=== PATIENT | male | born 1965 | race Two or more races ===

== ENCOUNTER 2023-05-03 06:24 | Inpatient (IN) | payer BC ==
[~2023-05-03] VITALS: Ht 182.9 cm; Wt 79.4 kg
[2023-05-03] MEDS ORDERED: SINGULAIR10 MG PO (07:21)
[2023-05-03] MEDS ORDERED: NASAL MIST126 ML (07:21)
[2023-05-03] MEDS ORDERED: ALLERGY RELIE15.8 ML NASAL (07:22)
[2023-05-03] MEDS ORDERED: PROAIR RESPICL90 MCG (07:22)
--- NOTE | 2023-05-03 07:23 | NUR ---
PACIENTE MASCULINO ALERTA Y ORIENTADO X3 REFIERE DIFICULTAD RESPIRATORIA Y PRESION EN EL PECHO. SE LE YAIMA S/V SPO2 94% BP 155/100. SE LE REALIZA EKG QUE SE PRESENTA A DR. DAVEY Y SE COLOCA EN PASILLO.
[2023-05-03] MEDS ORDERED: METHYLPREDNISOLONE SOD SUCC 125 MG VIAL IV STA (07:40)
[2023-05-03] MEDS ORDERED: MAGNESIUM SULFATE IN WATER 4 GM/100 ML PIGGYBACK IV STA (07:41)
[2023-05-03] MEDS ORDERED: ALBUTEROL SULFATE 3 ML/2.5 MG AMPUL.NEB IH SCH ×3 (07:45→13:00)
[2023-05-03] MEDS ORDERED: IPRATROPIUM BROMIDE 0.5 MG/2.5 ML AMPUL.NEB IH SCH (07:45)
--- NOTE | 2023-05-03 07:59 | NUR ---
SE ORIENTA PTE SOBRE TX A SEGUIR, EL CUAL REFIERE ENTENDER. SE COLECTAN MUESTRAS Y SE CANALIZA PTE UTILIZANDO MEDIDAS ASEPTICAS. SE ADM. MEDICAMENTOS QUENTIN ORDEN MEDICA. PEND X-RAY.
[2023-05-03 08:10] LABS: HEMATOCRIT 38.9 % (39.0-48.0); HEMOGLOBIN 13.9 g/dL (13-16.00); MEAN CELL VOLUME 84.9 fL (80.0-100.00); MEAN CORPUSCULAR HEMOGLOBIN 30.5 pg (27.00-32.0); MEAN CORPUSCULAR HGB CONC 35.9 g/dl (32.0-36.0); PLATELET COUNT 148 K/uL (150-450); RED BLOOD COUNT 4.58 M/uL (4.00-6.00); RED CELL DISTRIBUTION WIDTH 13.3 % (11.5-14.5)
[2023-05-03 08:10] LABS: ABG PH 7.516 (7.35-7.45); ABG PO2 79.9 mmHg (80-100); ABG pCO2 27.3 mmHg (35-45)
[2023-05-03 08:11] LABS: BASE EXCESS 0.1 mmol/l; BICARBONATE 21.6 mmol/l (23-25); Tco2 22.4 mmol/l; o2 21 %; puncture site RADIAL RIGHT
[2023-05-03 08:12] LABS: allen test SATISFACTORY
[2023-05-03 08:29] LABS: CALCIUM 8.6 mg/dL (8.5-10.1); CREATININE SERUM 0.67 mg/dL (0.70-1.30); GFR 122.26; POTASSIUM 3.36 mEq/L (3.5-5.1)
[2023-05-03] MEDS ORDERED: HYDROCODONE/CHLORPHEN P-STIREX 5 ML ML PO STA (10:36)
[2023-05-03] MEDS ORDERED: METHYLPREDNISOLONE SOD SUCC 40 MG VIAL IV SCH ×2 (11:58→12:00)
[2023-05-03] MEDS ORDERED: 0.9 % SODIUM CHLORIDE 1,000 ML IV SCH (12:00)
[2023-05-03] MEDS ORDERED: FAMOTIDINE/PF 20 MG/2 ML VIAL IV SCH (12:01)
[2023-05-03] MEDS ORDERED: BUDESONIDE 0.5 MG/2 ML AMPUL.NEB IH SCH (12:06)
[2023-05-03] MEDS ORDERED: OSELTAMIVIR PHOSPHATE 75 MG CAPSULE PO SCH (12:09)
[2023-05-03] MEDS ORDERED: ACETAMINOPHEN 325 MG TABLET PO PRN (12:15)
[2023-05-03 12:53] LABS: PH,URINE 5.5 (5.0-8.0); URINE APPEARANCE Clear; URINE BILIRRUBIN Negative (NEGATIVE); URINE BLOOD Small; URINE COLOR Yellow; URINE GLUCOSE Negative (NEGATIVE); URINE LEUKOCYTE Negative; URINE NITRATE Negative; URINE PROTEIN 30 (NEGATIVE); URINE UROBILINOGEN 0.2 E.U./dl
[2023-05-03 12:56] LABS: URINE WBC 1.8 uL (0.0-23.2)
[2023-05-03 13:00] LABS: URINE EPITHELIAL CELLS 1.3 uL (0.0-38.8)
[2023-05-03 13:08] LABS: INR 0.95; PARTIAL THROMBOPLASTIN TIME 33.6 SECONDS (22.0-34.0)
[2023-05-03 13:22] LABS: MAGNESIUM 3.3 mg/dL (1.8-2.4)
[2023-05-03 13:24] LABS: C-REACTIVE PROTEIN 5.15 MG/DL (0.00-0.29)
[2023-05-04 10:40] LABS: ABG PH 7.456 (7.35-7.45); ABG PO2 73.9 mmHg (80-100); ABG pCO2 32.4 mmHg (35-45); BASE EXCESS -0.7 mmol/l; BICARBONATE 22.3 mmol/l (23-25); SaO2 95.5 %; Tco2 23.3 mmol/l; allen test SATISFACTORY; o2 21 %; puncture site RADIAL LEFT
[2023-05-04] MEDS ORDERED: IPRATROPIUM/ALBUTEROL SULFATE 3 ML AMPUL.NEB IH SCH (12:13)
[2023-05-04] MEDS ORDERED: METHYLPREDNISOLONE SOD SUCC 125 MG VIAL IV SCH (17:00)
[2023-05-05] MEDS ORDERED: CEFTRIAXONE SODIUM 2,000 MG in 0.9 % SODIUM CHLORIDE 100 ML IV SCH (12:09)
[2023-05-05] MEDS ORDERED: AZITHROMYCIN 500 MG in 0.9 % SODIUM CHLORIDE 250 ML IV SCH (12:09)
[2023-05-05 15:28] LABS: ALBUMIN 3.5 gm/dL (3.4-5.0); BILIRUBIN TOTAL 0.4 mg/dL (0.3-1.2); CALCIUM 8.9 mg/dL (8.5-10.1); CREATININE SERUM 0.92 mg/dL (0.70-1.30); GFR 84.8; GLOBULINA 3.3 G/DL (2.4-3.5); POTASSIUM 3.37 mEq/L (3.5-5.1); TOTAL PROTEIN 6.8 gm/dL (6.4-8.2)
[2023-05-05] MEDS ORDERED: METHYLPREDNISOLONE SOD SUCC 40 MG VIAL IV SCH (17:00)
[2023-05-06] MEDS ORDERED: METHYLPREDNISOLONE SOD SUCC 40 MG VIAL IV SCH (17:00)
== END 2023-05-08 11:17 | disposition home or self-care (01) | DRG 194 ==
LOC: ER 06:25 → SURH 13:07 → SEC-K 13:07 → MEDJ 14:39 → SEC-K 14:46 → SURH 15:47
PROVIDERS: General Practice; Internal Medicine; ADMIT Internal Medicine; ATTEND Internal Medicine
PROC: 3E0F7GC Introduction of Other Therapeutic Substance into Respiratory Tract, Via Natural or Artificial Opening (ICD-10-PCS; principal; 2023-05-03)
PROC: 8E0ZXY6 Isolation (ICD-10-PCS; 2023-05-03)
DX: J10.1 Influenza due to other identified influenza virus with other respiratory manifestations (principal); J45.41 Moderate persistent asthma with (acute) exacerbation